=== PATIENT | female | born 1985 | race African-American/Black ===

== ENCOUNTER 2021-07-13 16:45 | Emergency (ER) | payer MEDICAID ==
[~2021-07-13] VITALS: Ht 172.7 cm; Wt 135.0 kg
[2021-07-13 16:47] VITALS: BP 158/96
[2021-07-13] MEDS ORDERED: IBUPROFEN 600MG TABLET PO ONE (17:00)
== END 2021-07-13 19:29 | disposition left against medical advice (07) ==
LOC: ER 16:45
DX: R51.9 Headache, unspecified (principal); Z87.828 Personal history of other (healed) physical injury and trauma
CPT/HCPCS: 99283